=== PATIENT | female | born 1965 | race Hispanic/Latino ===

== ENCOUNTER 2019-06-21 16:37 | Emergency (ER) | payer OTHER ==
[2019-06-21] MEDS ORDERED: ACETAMINOPHEN 325 MG TAB ONE (17:29)
[2019-06-21 17:35] LABS: BASOPHILS % (AUTO) 1.3 % (0.0-5.0); EOSINOPHILS % (AUTO) 2.1 % (0.0-8.0); HEMATOCRIT 41.5 % (36-48); LYMPHOCYTES % (AUTO) 37.8 % (21.0-51.0); MEAN CORPUSCULAR HEMOGLOBIN 29.4 pg (27.0-33.0); MEAN CORPUSCULAR VOLUME 86.3 fL (79-99); MONOCYTES % (AUTO) 7.3 % (3.0-13.0); NEUTROPHILS % (AUTO) 51.5 % (40.0-77.0); NUCLEATED RED BLOOD CELLS 0.1 % (0.0-0.19); PLATELET COUNT (AUTO) 271 K/uL (130-400); RED BLOOD CELL COUNT(AUTO) 4.81 MIL/uL (4.00-5.50); RED CELL DISTRIBUTION WIDTH 13.2 % (11.0-15.5); WHITE BLOOD COUNT (AUTO) 9.1 K/uL (4.8-10.8)
[2019-06-21 17:54] LABS: INR 1.06 (0.85-1.15); PARTIAL THROMBOPLASTIN TIME 24.5 SEC (26.3-35.5); PROTHROMBIN TIME 11.1 SEC (9.6-11.6)
[2019-06-21 18:04] LABS: CREATININE 0.8 mg/dL (0.5-1.5); POTASSIUM 4.8 mmol/L (3.5-5.1)
[2019-06-21 18:08] LABS: ALBUMIN 3.4 g/dL (3.5-5.0); BILIRUBIN,TOTAL 0.2 mg/dL (0.2-1.0); TOTAL PROTEIN, SERUM 7.7 g/dL (6.0-8.3)
[2019-06-21 18:15] LABS: ABG OXYGEN SATURATION 64.2 % (95.0-99.0); HCO3,VENOUS BLOOD GAS 26.4 (21.0-28.0); PCO2,VENOUS BLOOD GAS 49 (32-45); PH,VENOUS BLOOD GAS 7.345 (7.350-7.450)
[2019-06-21 19:00] LABS: APPEARANCE,URINE Clear (CLEAR); BILIRUBIN,URINE Negative (NEGATIVE); COLOR,URINE Yellow (YELLOW); GLUCOSE, URINE (UA) >=1000 mg/dL (NEGATIVE); KETONES,URINE Negative (NEGATIVE); LEUKOCYTE ESTERASE ,URINE Trace (NEGATIVE); NITRATE,URINE Negative (NEGATIVE); OCCULT BLOOD,URINE Negative (NEGATIVE); PROTEIN,URINE Negative (NEGATIVE); UROBILINOGEN,URINE 0.2 mg/dL (0.2-1.0)
[2019-06-21] MEDS ORDERED: ASPIRIN 81MG TAB.CHEW ONE (19:04)
[2019-06-21 19:29] LABS: RBC,URINE 0-1 /HPF (0-1)
[2019-06-21 19:30] LABS: BACTERIA,URINE Rare /HPF (None Seen); SQUAMOUS EPITHELIAL CELL,UR Few /HPF (0-2)
[2019-06-21] MEDS ORDERED: IOHEXOL-350 75 ML VIAL IV ONE (19:32)
[2019-06-21] MEDS ORDERED: CEFTRIAXONE SODIUM 1 GM ONE (19:59)
[2019-06-21] MEDS ORDERED: INSULIN HUMULIN R 100 UNIT/ML 3ML ONE (20:16)
== END 2019-06-21 21:52 | disposition home or self-care (01) ==
LOC: EDH 16:37
DX: S93.402A Sprain of unspecified ligament of left ankle, initial encounter (principal); E11.65 Type 2 diabetes mellitus with hyperglycemia; E86.0 Dehydration; N30.00 Acute cystitis without hematuria; Z98.890 Other specified postprocedural states; X58.XXXA Exposure to other specified factors, initial encounter; Y93.89 Activity, other specified; Y92.89 Other specified places as the place of occurrence of the external cause; Y99.8 Other external cause status
CPT/HCPCS: 36415; 36600; 71045; 71275; 73610; 80053; 81001; 82010; 82550; 82803; 82948 ×2; 83605; 84484 ×2; 85025; 85378; 85610; 85651; 85730; 86140; 87040 ×2; 87804 ×2; 93005 ×2; 93971; 96361; 96374; 96375; 99285; J0696; J1815; Q9967

== ENCOUNTER → 2024-01-13 | Outpatient (CLI) | payer OTHER | END | disposition home or self-care (01) | LOC: LAB 11:51 | PROVIDERS: ATTEND Internal Medicine Cardiovascular Disease | DX: I50.9 Heart failure, unspecified (principal) | CPT/HCPCS: 36415; 83880 ==

== ENCOUNTER → 2024-06-26 | Outpatient (CLI) | payer OTHER ==
--- NOTE | 2024-06-29 12:44 | HMCSR ---
APPROVED REPORT EXAM: Two-dimensional and M-mode echocardiogram with Doppler and color Doppler. INDICATION ICD: Dilated cardiomyopathy I42.0 RISK FACTORS Hypertension Diabetes 2D Dimensions RVDd4.2 cmLVEF(%)24.0 (>50%)LVED Vol(simp.)170.0 mL IVSd0.8 (0.7-1.1cm)FS(%)11 %LVES Vol(simp.)132.0 mL LVDd5.2 (3.8-5.6cm)Ao Root(2D)2.6 (2.0-3.7cm)LVEF(%, simp.)22 % PWd0.9 (0.7-1.1cm)LVOT diam2.2 (1.8-2.4cm)LA ESV INDEX (BP)48.00 mL/m2 LVDs4.6 (2.5-4.0cm)IVC diam2.4 cm Deformation Strain Apical 4-6.0 % Apical 2-4.8 % Apical 3-5.4 % Global Strain-5.4 % Aortic Valve AoV Vmax1.1 m/Sandrine Peak GR4.4 mmHgLVOT Vmax0.6 m/s AoV VTI0.2 mAo Mean GR2.6 mmHgLVOT VTI0.11 m BRIAN (VMAX)1.8 cm2AVA (VTI) 1.8 cm2 Mitral Valve MV E Wdgp063.2 cm/sDECEL Vinh160 ms MV A Vmax55.1 cm/sP 1/2 T30 ms E/A ratio2.2MVA (PHT)7.3 cm2 MR Max PG98 mmHg TDI E/E' Abiaee84.6E/E' Ttpason28.7 Pulmonary Valve PV Vmax0.7 m/sPV VTI0.13 mPV Mean GR1 mmHg PV Peak GR1.8 mmHgPI End Irlanda. Maicol 1.7 cm/s Tricuspid Valve TR Vmax3.4 m/sRAP (EST) 15 ksZdYBYY84.3 mmHg TR Peak GR46.3 mmHg Left Ventricle The left ventricle is moderately dilated by volume. (LVED 170ml). There is global hypokinesis of the left ventricle. There is normal left ventricular wall thickness. LVEF is 20-25%. Grade 3 diastolic dy sfunction. Right Ventricle The right ventricle is dilated. Right ventricular systolic function is normal. Atria The left atrium is severely dilated. The right atrium size is normal. Aortic Valve Aortic valve is trileaflet. The aortic valve is mildly thickened but opens well. Trace aortic regurgi tation. There is no aortic valvular stenosis. Mitral Valve Mitral annular calcification is mild. The mitral valve is mildly thickened but opens well. Mitral reg urgitation is mild to moderate. There is no mitral valve stenosis. Tricuspid Valve The tricuspid valve leaflets appear normal. There is moderate tricuspid regurgitation. Right ventricu lar systolic pressure is estimated at greater than 60 mmHg. Pulmonic Valve The pulmonic valve leaflets are thin and pliable; valve motion is normal. There is trace to mild valv ular regurgitation. Great Vessels The aortic root is normal in size. IVC is dilated and collapses <50% with inspiration. Pericardium Trace pericardial effusion. There are no echocardiographic indications for cardiac tamponade. Conclusion The left ventricle is moderately dilated by volume. (LVED 170ml). LVEF is 20-25%. Grade 3 diastolic dysfunction. There is global hypokinesis of the left ventricle. Trace aortic regurgitation. Mitral regurgitation is mild to moderate. There is moderate tricuspid regurgitation. Right ventricular systolic pressure is estimated at greater than 60 mmHg. Trace pericardial effusion. There are no echocardiographic indications for cardiac tamponade.
== END | disposition home or self-care (01) ==
LOC: SHCH 08:47
PROVIDERS: ATTEND Internal Medicine Cardiovascular Disease
DX: I08.8 Other rheumatic multiple valve diseases (principal); I11.9 Hypertensive heart disease without heart failure; I42.0 Dilated cardiomyopathy; E11.9 Type 2 diabetes mellitus without complications
CPT/HCPCS: 93306; 93356